=== PATIENT | female | born 1975 | race Two or more races ===

== ENCOUNTER 2018-01-31 09:27 | Emergency (ER) | payer OTHER ==
[2018-01-31 09:35] VITALS: BP 118/63; PULSE 72; TEMP 97.9; BMI 23.3
[2018-01-31] MEDS ORDERED: KETOROLAC TROMETHAMINE 60 MG/2 ML VIAL IM ONE (10:14)
[2018-01-31] MEDS ORDERED: KETOROLAC TROMETHAMINE 60 MG/2 ML VIAL ONE (10:20)
--- NOTE | 2018-01-31 10:21 | PDOC ---
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 However 2 weeks ago was opening a sofa bed which struck her in the right tibia pushing her backwards and causing strain on her lower back. Since that time is complaints of on the right side, gluteal with radiation down the posterior aspect of leg. Has used ibuprofen with no resolved. States 2 days ago had ultrasound of her right leg performed which patient reports as negative for clot. Occurred: reports: last week Severity: reports: mild, moderate Pain Location: reports: back, lower extremity (right leg right leg) Modifying Factors: improves with: pain medication Loss of Consciousness: no loss of consciousness Associated Symptoms (Fall): denies symptoms Past History - Travel Traveled outside of the country in the last 30 days: No Close contact w/someone who was outside of country & ill: No - Past Medical History Allergies/Adverse Reactions: Allergies Allergy/AdvReac Type Severity Reaction Status Date / Time No Known Allergies Allergy Verified 01/31/18 09:29 Home Medications: Ambulatory Orders Cyclobenzaprine HCl 10 mg PO Q8H PRN #14 tablet 01/31/18 Ibuprofen [Advil -] 600 mg PO QID 01/31/18 Naproxen [Naprosyn -] 500 mg PO BID #30 tablet 01/31/18 COPD: No - Suicide/Smoking/Psychosocial Hx Smoking History: Never smoked Have you smoked in the past 12 months: No Hx Alcohol Use: No Drug/Substance Use Hx: No Substance Use Type: None *Physical Exam - Vital Signs Last Vital Signs Temp Pulse Resp BP Pulse Ox 97.9 F 72 16 118/63 98 01/31/18 09:30 01/31/18 09:30 01/31/18 09:30 01/31/18 09:30 01/31/18 09:30 - Physical Exam General Appearance: Yes: Nourished, Appropriately Dressed, Apparent Distress, Mild Distress HEENT: positive: SHEA, Normal ENT Inspection, Normal Voice, TMs Normal, Pharynx Normal Neck: positive: Tender, Supple. negative: Lymphadenopathy (R), Lymphadenopathy (L) Respiratory/Chest: positive: Lungs Clear Extremity: positive: Normal Capillary Refill, Normal Inspection. negative: Normal Range of Motion Integumentary: positive: Normal Color, Dry, Warm, Pale (limited due to pain and low back) Neurologic: positive: spare parts clerk II-XII NML intact, Fully Oriented, Normal Response, Motor Strength 5/5 Progress Note - Progress Note Progress Note: Low back strain with spasm. We'll treat with NSAIDs and cyclobenzaprine *DC/Admit/Observation/Transfer Diagnosis at time of Disposition: Spasm of muscle of lower back - Discharge Dispostion Disposition: HOME Condition at time of disposition: Stable Decision to Admit order: No - Prescriptions Prescriptions: Cyclobenzaprine HCl 10 mg PO Q8H PRN #14 tablet PRN Reason: spasm Naproxen [Naprosyn -] 500 mg PO BID #30 tablet - Referrals Referrals: Marion Carroll MD [Primary Care Provider] - - Patient Instructions Printed Discharge Instructions: DI for Back Spasm Additional Instructions: Rest, no heavy lifting or exercise until pain is resolved Hot soaks to neck and low back as often as possible/hot showers or Jacuzzis No massage or therapy until spasm is gone Continue Naprosyn 500 mg tablet every 12 hours for the next 3 days then as needed for pain and swelling Cyclobenzaprine 1-2 tablets of 5mgs every 8 hours as needed for spasm If not significant improvement within 24 hours with medication and rest regime, followup with private physician for change in medications and /or therapy. El descanso, no levantar objetos pesados o hacer ejercicio hasta que el dolor se resuelve Compresas calientes a susie y espalda baja lo antes posible / duchas calientes o jacuzzis Sin masaje o terapia hasta el espasmo se mckoy fareed Continuar Naprosyn 500 mg comprimidos cada 12 horas moisés los prximos 3 dyer despus, segn sea necesario para el dolor y la inflamacin Tabletas ciclobenzaprina 1-2 de 5mgs cada 8 horas segn sea necesario para el espasmo Si no mejora significativa dentro de las 24 horas con la medicacin y el rgimen de descanso, followup con mdtin particular para el cambio en los medicamentos y / o terapia. - Post Discharge Activity Forms/Work/School Notes: Back to Work
== END 2018-01-31 12:14 | disposition home or self-care (01) ==
LOC: JERFT 09:27
PROC: 3E0233Z Introduction of Anti-inflammatory into Muscle, Percutaneous Approach (ICD-10-PCS; principal; 2018-01-31)
DX: M62.830 Muscle spasm of back (principal); X58.XXXA Exposure to other specified factors, initial encounter; Y93.89 Activity, other specified; Y92.9 Unspecified place or not applicable
CPT/HCPCS: 96372; 99281-25

== ENCOUNTER 2018-07-18 06:50 | Day surgery (SDC) | payer OTHER ==
[2018-07-17 18:39] VITALS: BMI 24.2
[2018-07-18] MEDS ORDERED: LIDOCAINE HCL 1%, 10 MG/ML (20ML VIAL) ONE (08:49)
[2018-07-18] MEDS ORDERED: ceFAZolin SODIUM 1 GM VIAL ONE (09:34)
[2018-07-18] MEDS ORDERED: KETOROLAC TROMETHAMINE 30 MG/1 ML VIAL ONE ×2 (09:34→09:35)
[2018-07-18] MEDS ORDERED: SODIUM CHLORIDE 0.9% P/F 10 ML VIAL IJ ONE (09:34)
[2018-07-18] MEDS ORDERED: LIDOCAINE HCL/PF 2% SDV 5ML VIAL ONE (09:34)
[2018-07-18] MEDS ORDERED: PROPOFOL 20 ML ONE ×2 (09:36→11:27)
[2018-07-18] MEDS ORDERED: MIDAZOLAM HCL 2 MG/2 ML SINGLE DOSE VIAL ONE (09:39)
[2018-07-18] MEDS ORDERED: oxyCODONE HCL 5 MG TABLET PO PRN (09:44)
[2018-07-18] MEDS ORDERED: ONDANSETRON 4 MG/2 ML VIAL IVPUSH PRN (09:44)
[2018-07-18] MEDS ORDERED: LACTATED RINGERS SOLUTION 1,000 ML IV SCH (09:45)
[2018-07-18] MEDS ORDERED: ceFAZolin SODIUM 1 GM VIAL IVPB ONE ×2 (10:07→10:53)
[2018-07-18] MEDS ORDERED: LIDOCAINE HCL 1%, 10 MG/ML (20ML VIAL) NR ONE ×3 (10:08→11:16)
--- NOTE | 2018-07-18 12:41 | OP ---
DATE OF OPERATION: 07/18/2018 PREOPERATIVE DIAGNOSIS: Right breast palpable lump with atypia. POSTOPERATIVE DIAGNOSIS: Right breast palpable lump with atypia. PROCEDURE: Right breast wire-localized lumpectomy. SURGEON: Ni Yang MD ANESTHESIA: Local and IV sedation. ESTIMATED BLOOD LOSS: Minimal. COMPLICATIONS: None. This was a sterile procedure. INDICATIONS FOR PROCEDURE: Patient had a right breast 3 o'clock needle biopsy that revealed a palpable lump with focal atypia. My recommendation was excision. The procedure was discussed with all the questions answered. PROCEDURE IN DETAIL: Patient was brought to [facility] in [place], taken down to breast imaging where wire was used to localize the clip in the inner right breast. She was brought up to the operating room, and after IV sedation and IV antibiotics, the right breast was prepped and draped in the usual sterile fashion. The area in the inner right breast was anesthetized with 1% lidocaine without epinephrine. A radial incision was made in the right 3 o'clock location. A wire was used as a guide to get down to the area of interest. This was excised en bloc. On doing this, I realized that the area of the needle biopsy had opened up and likely the clip fell out at that time. However, I did then take additional tissues superiorly, which is where I felt the area of the biopsy was. This was then excised, tagged with a long stitch lateral and a short stitch superior, sent for specimen radiograph. There was no clip in the specimen. However, I felt that I was in the right location as far as where the palpable lump was biopsied. This was sent to Pathology for permanent section. Hemostasis was assured with electrocautery. The parenchyma was approximated with interrupted 2-0 Vicryl. Skin approximated with interrupted 3-0 Vicryl and running 4-0 Prolene. A sterile dressing with Tegaderm and 4x4s was applied. She tolerated the procedure well and was taken to recovery in good condition. NI YANG M.D. [id number]
[2018-07-18 12:52] VITALS: TEMP 97.3
[2018-07-18 15:03] VITALS: BP 112/70; PULSE 72
--- NOTE | 2018-07-21 19:04 | PATH ---
Surgical Pathology Report Patient Name: LIANE MATHIS Med. Rec. #: [id number] /Age/Gender: 1975 (Age: 42) / F Account: [id number] Location: [facility] Taken: 07/18/2018 Received: 07/18/2018 Reported: 07/21/2018 Physicians: Ni Adams M.D. Specimen(s) Received RIGHT BREAST LUMPECTOMY Clinical History None given Final Diagnosis BREAST, RIGHT, LUMPECTOMY: TWO (2) INTRADUCTAL PAPILLOMAS, PARTIALLY SCLEROSED. FOCAL ATYPICAL DUCTAL HYPERPLASIA. PROLIFERATIVE FIBROCYSTIC CHANGES INCLUDING STROMAL FIBROSIS, MICROCYSTS, USUAL DUCTAL AND PAPILLARY HYPERPLASIA, CYSTIC APOCRINE METAPLASIA, AND COLUMNAR CELL CHANGES. Electronically Signed Lala Waller M.D. Gross Description Received fresh on an AccuGrid, labeled "right breast lumpectomy," is a 4.0 x 4.0 x 1.3 cm. loredo-yellow, irregular, portion of fibroadipose tissue with a needle localization wire present. There is a short suture marking the superior aspect and a long suture marking the lateral aspect, per the surgeon. There is no skin or nipple present. The specimen is inked as follows: superior and lateral blue; inferior green; medial yellow; anterior red; deep black. The specimen is serially sectioned from superior to inferior. Sectioning reveals diffuse dense white fibrous tissue. No definitive mass is identified. The specimen is entirely and sequentially submitted in 8 cassettes with the superior margin in cassette 1 and the inferior margin in cassette 8. Time to formalin fixation: 36 minutes Total formalin fixation time: Approximately 54 hours. 07/19/2018 [facility]07/19/2018
== END 2018-07-18 15:03 | disposition home or self-care (01) ==
LOC: JASU-SURG 06:50
PROVIDERS: ATTEND Surgery
PROC: 0HBT0ZZ Excision of Right Breast, Open Approach (ICD-10-PCS; principal; 2018-07-18 10:00)
DX: D24.1 Benign neoplasm of right breast (principal); N60.11 Diffuse cystic mastopathy of right breast
CPT/HCPCS: 19281; 36415; 84703; 88307-TC; 94760

== ENCOUNTER 2020-11-07 17:54 | Emergency (ER) | payer OTHER ==
[2020-11-07 18:05] VITALS: BP 126/79; PULSE 70; BMI 26.4
[2020-11-07] MEDS ORDERED: SODIUM CHLORIDE 0.9% 1000 ML INFUS.BAG IV ONE (20:05)
[2020-11-07 20:55] LABS: BASO % 0.6 % (0-2.0); EOS % 0.8 % (0-4.5); HEMATOCRIT 31.8 % (32.4-45.2); HEMOGLOBIN 10.5 GM/dL (10.7-15.3); LYMPH % 24.9 % (8-40); MCH 26.1 pg (25.7-33.7); MEAN CELL VOLUME 79.1 fl (80-96); MEAN PLT VOLUME 8.2 fl (7.5-11.1); MONO % 6.4 % (3.8-10.2); NEUT % 67.3 % (42.8-82.8); PLATELET COUNT 362 10^3/uL (134-434); RBC 4.02 M/mm3 (3.60-5.2); RDW 15.3 % (11.6-15.6); WHITE BLOOD COUNT 9.8 K/mm3 (4.0-10.0)
[2020-11-07 21:06] LABS: CHLORIDE 105 mmol/L (98-107); SODIUM 139 mmol/L (136-145)
[2020-11-07 21:08] LABS: CALCIUM 8.9 mg/dL (8.5-10.1)
[2020-11-07 21:09] LABS: ANION GAP 5 MMOL/L (8-16); BLOOD UREA NITROGEN 13.6 mg/dL (7-18); CO2 29 mmol/L (21-32); GLUCOSE,RANDOM 86 mg/dL (74-106)
[2020-11-07 21:12] LABS: CREATININE 0.8 mg/dL (0.55-1.3); SGOT/AST 13 U/L (15-37); SGPT/ALT 18 U/L (13-61)
[2020-11-07 21:13] LABS: BILIRUBIN,TOTAL 0.2 mg/dL (0.2-1)
[2020-11-07 21:14] LABS: TOT PROT 8.3 g/dl (6.4-8.2)
[2020-11-07 21:15] LABS: ALK PHOS 67 U/L (45-117)
== END 2020-11-07 21:40 | disposition home or self-care (01) ==
LOC: JER 17:54
DX: R01.1 Cardiac murmur, unspecified (principal); R42 Dizziness and giddiness; R53.83 Other fatigue
CPT/HCPCS: 36415; 80053; 84484; 84703; 85025; 86850; 86900; 86901; 93005; 93010; 99284-25

== ENCOUNTER 2021-03-08 01:27 | Emergency (ER) | payer OTHER ==
[2021-03-08 01:42] VITALS: BP 104/61; PULSE 84; TEMP 98.8; BMI 28.3
[2021-03-08] MEDS ORDERED: ONDANSETRON 4 MG/2 ML VIAL IVPUSH ONE (02:19)
[2021-03-08] MEDS ORDERED: MECLIZINE HCL 25 MG TABLET (FP) PO ONE (02:19)
[2021-03-08] MEDS ORDERED: SODIUM CHLORIDE 0.9% 1000 ML INFUS.BAG IV ONE (02:19)
[2021-03-08] MEDS ORDERED: MECLIZINE HCL 25 MG TABLET (FP) ONE (02:33)
[2021-03-08] MEDS ORDERED: ONDANSETRON 4 MG/2 ML VIAL ONE (02:34)
[2021-03-08 03:55] LABS: BASO % 0.3 % (0-2.0); EOS % 1.2 % (0-4.5); HEMATOCRIT 28.5 % (32.4-45.2); HEMOGLOBIN 9.3 GM/dL (10.7-15.3); LYMPH % 21.3 % (8-40); MCH 24.9 pg (25.7-33.7); MCHC 32.6 g/dl (32.0-36.0); MEAN CELL VOLUME 76.3 fl (80-96); MEAN PLT VOLUME 8.5 fl (7.5-11.1); MONO % 6.4 % (3.8-10.2); NEUT % 70.8 % (42.8-82.8); PLATELET COUNT 335 10^3/uL (134-434); RBC 3.74 M/mm3 (3.60-5.2); RDW 15.9 % (11.6-15.6); WHITE BLOOD COUNT 9.9 K/mm3 (4.0-10.0)
[2021-03-08 04:09] LABS: CHLORIDE 107 mmol/L (98-107); SODIUM 140 mmol/L (136-145)
[2021-03-08 04:11] LABS: ALBUMIN 3.5 g/dl (3.4-5.0); ANION GAP 10 MMOL/L (8-16); BLOOD UREA NITROGEN 13.1 mg/dL (7-18); CALCIUM 8.3 mg/dL (8.5-10.1); CO2 24 mmol/L (21-32)
[2021-03-08 04:12] LABS: GLUCOSE,RANDOM 114 mg/dL (74-106)
[2021-03-08 04:14] LABS: CREATININE 0.8 mg/dL (0.55-1.3); SGOT/AST 14 U/L (15-37)
[2021-03-08 04:15] LABS: SGPT/ALT 15 U/L (13-61)
[2021-03-08 04:16] LABS: BILIRUBIN,TOTAL 0.1 mg/dL (0.2-1); TOT PROT 7.6 g/dl (6.4-8.2)
[2021-03-08 04:17] LABS: ALK PHOS 62 U/L (45-117)
== END 2021-03-08 04:49 | disposition home or self-care (01) ==
LOC: JER 01:27
PROC: 3E033GC Introduction of Other Therapeutic Substance into Peripheral Vein, Percutaneous Approach (ICD-10-PCS; principal; 2021-03-08)
DX: R42 Dizziness and giddiness (principal)
CPT/HCPCS: 36415; 80053; 84484; 84703; 85025; 93005; 93010; 99284-25

== ENCOUNTER 2023-01-19 13:10 | Emergency (ER) | payer OTHER ==
[2023-01-19 13:23] VITALS: BP 120/82; PULSE 64; RESP 20; TEMP 98.5; BMI 27.4
[2023-01-19] MEDS ORDERED: SODIUM CHLORIDE 1,000 ML IV STA (13:36)
[2023-01-19] MEDS ORDERED: NAPROXEN 500 MG TABLET PO ONE (14:42)
[2023-01-19] MEDS ORDERED: NAPROXEN 500 MG TABLET ONE (15:00)
[2023-01-19 15:31] LABS: BASO % 0.3 % (0-2.0); EOS % 1.1 % (0-4.5); HEMATOCRIT 32.9 % (32.4-45.2); HEMOGLOBIN 10.6 GM/dL (10.7-15.3); LYMPH % 26.8 % (8-40); MCH 24.5 pg (25.7-33.7); MCHC 32.2 g/dl (32.0-36.0); MEAN CELL VOLUME 76.2 fl (80-96); MEAN PLT VOLUME 8.6 fl (7.5-11.1); MONO % 5.5 % (3.8-10.2); NEUT % 66.3 % (42.8-82.8); PLATELET COUNT 397 10^3/uL (134-434); RBC 4.32 M/mm3 (3.60-5.2); RDW 16.9 % (11.6-15.6); WHITE BLOOD COUNT 8.3 K/mm3 (4.0-10.0)
[2023-01-19 15:42] LABS: INR 1.08 (0.83-1.09); PROTHROMBIN TIME (PATIENT) 12.5 SEC (9.7-13.0)
[2023-01-19 15:45] LABS: ACTIVATED PTT 36.3 SECONDS (25.2-36.5)
[2023-01-19 16:02] LABS: POTASSIUM 4.1 mmol/L (3.5-5.1)
[2023-01-19 16:04] LABS: ALBUMIN 4.2 g/dl (3.4-5.0); BLOOD UREA NITROGEN 13.6 mg/dL (7-18); CALCIUM 8.9 mg/dL (8.5-10.1)
[2023-01-19 16:05] LABS: MAGNESIUM 2.2 mg/dL (1.8-2.4)
[2023-01-19 16:07] LABS: CREATININE 0.7 mg/dL (0.55-1.3)
[2023-01-19 16:09] LABS: BILIRUBIN,TOTAL 0.3 mg/dL (0.2-1); TOT PROT 8.5 g/dl (6.4-8.2)
== END 2023-01-19 16:54 | disposition home or self-care (01) ==
LOC: JER 13:10
PROC: 3E0337Z Introduction of Electrolytic and Water Balance Substance into Peripheral Vein, Percutaneous Approach (ICD-10-PCS; principal; 2023-01-19)
DX: M25.512 Pain in left shoulder (principal); R07.89 Other chest pain; V49.50XA Passenger injured in collision with unspecified motor vehicles in traffic accident, initial encounter
CPT/HCPCS: 36415; 71046-TC-FY; 80053; 83735; 84484; 84703; 85025; 85610; 85730; 93005; 93010; 99285-25

== ENCOUNTER 2023-08-22 08:19 | Emergency (ER) | payer OTHER ==
[2023-08-22 08:34] VITALS: BP 138/71; PULSE 92; RESP 18; TEMP 97.6; BMI 25.7
== END 2023-08-22 10:44 | disposition home or self-care (01) ==
LOC: JER 08:19
DX: T18.128A Food in esophagus causing other injury, initial encounter (principal); K08.89 Other specified disorders of teeth and supporting structures; R11.0 Nausea
CPT/HCPCS: 99282-25

== ENCOUNTER 2024-04-24 03:48 | Emergency (ER) | payer OTHER ==
[2024-04-24 04:38] VITALS: BP 148/90; PULSE 87; TEMP 98.7; BMI 30.9
[2024-04-24] MEDS ORDERED: ACETAMINOPHEN INJECTION 100 ML ONE (04:39)
[2024-04-24] MEDS ORDERED: ONDANSETRON 4 MG/2 ML VIAL ONE (04:56)
[2024-04-24] MEDS: ACETAMINOPHEN 1000 MG/100 ML BAG IVPB ONE (04:56)
[2024-04-24] MEDS: ONDANSETRON 4 MG/2 ML VIAL IVPB ONE (04:59)
[2024-04-24] MEDS: METOCLOPRAMIDE HCL INJECTION 10 MG/2 ML VIAL IVPB ONE (04:59)
[2024-04-24 05:27] LABS: BASO % 0.5 % (0-2.0); EOS % 1.8 % (0-4.5); HEMATOCRIT 30.8 % (32.4-45.2); HEMOGLOBIN 9.5 GM/dL (10.7-15.3); LYMPH % 26.8 % (8-40); MCH 23.8 pg (25.7-33.7); MCHC 30.9 g/dl (32.0-36.0); MEAN CELL VOLUME 77.2 fl (80-96); MEAN PLT VOLUME 8.6 fl (7.5-11.1); MONO % 6.8 % (3.8-10.2); NEUT % 64.1 % (42.8-82.8); PLATELET COUNT 379 10^3/uL (134-434); RBC 3.99 M/mm3 (3.60-5.2); RDW 15.6 % (11.6-15.6); WHITE BLOOD COUNT 9.2 K/mm3 (4.0-10.0)
[2024-04-24 05:39] LABS: INR 1.05 (0.83-1.09); PROTHROMBIN TIME (PATIENT) 11.9 SEC (9.7-13.0)
[2024-04-24 05:41] LABS: ACTIVATED PTT 30.6 SECONDS (25.2-36.5)
[2024-04-24 05:48] LABS: ALBUMIN 3.5 g/dl (3.4-5.0); BLOOD UREA NITROGEN 13.2 mg/dL (7-18); POTASSIUM 3.9 mmol/L (3.5-5.1)
[2024-04-24 05:51] LABS: CREATININE 0.8 mg/dL (0.55-1.3)
[2024-04-24 05:53] LABS: BILIRUBIN,TOTAL 0.2 mg/dL (0.2-1); TOT PROT 7.2 g/dl (6.4-8.2)
== END 2024-04-24 06:51 | disposition home or self-care (01) ==
LOC: JER 03:48
PROC: 3E033NZ Introduction of Analgesics, Hypnotics, Sedatives into Peripheral Vein, Percutaneous Approach (ICD-10-PCS; principal; 2024-04-24)
PROC: 3E033GC Introduction of Other Therapeutic Substance into Peripheral Vein, Percutaneous Approach (ICD-10-PCS; 2024-04-24)
DX: R07.89 Other chest pain (principal); Z20.822 Contact with and (suspected) exposure to COVID-19
CPT/HCPCS: 0241U-QW; 36415; 71045-TC-FY; 80053; 84484; 85025; 85610; 85730; 93005; 93010; 99285-25; J0131